=== PATIENT | male | born 1985 | race Caucasian/White ===

== ENCOUNTER 2019-09-11 16:54 | Emergency (ER) | payer OTHER ==
[2019-09-11] MEDS ORDERED: Albuterol/Ipratropium NEB.SOL* Albuterol 2.5 MG/Ipratropium 0.5 MG 3 ML INH ONE ×2 (17:13→17:51)
[2019-09-11] MEDS ORDERED: predniSONE TAB* 20 MG PO ONE (17:14)
--- NOTE | 2019-09-11 17:15 | UC ---
Respiratory Complaint HPI - HPI Summary HPI Summary: Patient is a 34yo male presenting with father for SOB and wheezing that has worsened over the past few days. 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 States he has "just been breathing it in." Patient also states he has been exposed to black mold at his home. Patient notes chest tightness. Denies fever and chills. Denies n/v/d. Denies dizziness. Denies history of asthma. - History of Current Complaint Stated Complaint: SOB Time Seen by Provider: 09/11/19 17:13 Hx Obtained From: Patient Onset/Duration: Gradual Onset, Lasting Days - Allergies/Home Medications Allergies/Adverse Reactions: Allergies Allergy/AdvReac Type Severity Reaction Status Date / Time No Known Allergies Allergy Verified 09/11/19 17:39 Home Medications: Home Medications Loratadine [Claritin] 10 mg PO DAILY 09/11/19 [History Confirmed 09/11/19] guaiFENesin [Mucinex] 600 mg PO BID 09/11/19 [History Confirmed 09/11/19] PMH/Surg Hx/FS Hx/Imm Hx Previously Healthy: Yes - Family History Known Family History: Positive: Non-Contributory Review of Systems All Other Systems Reviewed And Are Negative: Yes Constitutional: Positive: Negative. Negative: Fever, Chills Eyes: Positive: Negative. Negative: Blurred Vision, Diplopia, Drainage ENT: Positive: Negative. Negative: Sore Throat, Ear Ache, Nasal Discharge, Sinus Congestion, Sinus Pain/Tenderness Respiratory: Positive: Shortness Of Breath, Other - wheezing. Negative: Cough Cardiovascular: Positive: Negative. Negative: Palpitations, Chest Pain Gastrointestinal: Positive: Negative. Negative: Abdominal Pain, Vomiting, Diarrhea, Nausea Physical Exam Triage Information Reviewed: Yes Appearance: Well-Nourished, Other: - mild respiratory distress. Patient still able to speak in full sentences Vital Signs Reviewed: Yes Eyes: Positive: Conjunctiva Inflamed ENT: Positive: Hearing grossly normal, Pharynx normal, TMs normal, Uvula midline. Negative: Nasal congestion, Nasal drainage, Trismus, Muffled voice, Hoarse voice Neck exam: Normal Neck: Positive: Supple Respiratory: Positive: Respiratory distress, Wheezing - diffuse wheezing throughout all lung higgins. Negative: Crackles, Rhonchi, Stridor Cardiovascular: Positive: RRR, Tachycardia Neurological Exam: Normal Neurological: Positive: Alert, Muscle Tone Normal Psychological: Positive: Age Appropriate Behavior Respiratory Course/Dx - Course Course Of Treatment: Patient received two duoneb treatments and prednisone here. Prescribed prednisone and albuterol inhaler for home. Patient VS stable upon departure. No respiratory distress or increased effort noted after nebbing. Patient voiced significant improvement in breathing. Instructed patient to refrain from harvesting hemp for the rest of the week. Instructed to use mask while working. Directed him to follow up with [facility] or Dr. Alvarenga at the [facility] if needed. Patient voiced understanding and agreed to the treatment plan. The patient was also discussed with Dr. Begum who agreed to the treatment plan. - Differential Dx/Diagnosis Provider Diagnosis: Acute bronchospasm Discharge ED - Sign-Out/Discharge Documenting (check all that apply): Patient Departure All imaging exams completed and their final reports reviewed: No Studies - Discharge Plan Condition: Stable Disposition: HOME Prescriptions: predniSONE TAB* [Deltasone 20 MG TAB*] 40 mg PO DAILY #8 tab Patient Education Materials: Bronchospasm (ED) Forms: *Work Release Referrals: Jeancarlos Barbosa MD [Primary Care Provider] - If Needed Elias Alvarenga MD [Medical Doctor] - If Needed Additional Instructions: As discussed, take 1-2 breaths of the albuterol inhaler every 4-6 hours as needed for your shortness of breath. Take the prednisone as prescribed to relieve inflammation. It is important that you wear a protective mask while working. Follow up with the [facility] or the primary care physician referral listed below if symptoms continue. Return or go to the emergency room if you experience severe shortness of breath. - Billing Disposition and Condition Condition: STABLE Disposition: Home - Attestation Statements Provider Attestation: Per institutional requirements, I have reviewed the chart,. I did not personally evaluate, interact with , or disposition this patient.
[2019-09-11 17:39] VITALS: BP 137/82
[2019-09-11] MEDS ORDERED: Albuterol HFA INHALER* 8 gm MDI INH ONE (18:01)
== END 2019-09-11 18:26 | disposition home or self-care (01) ==
LOC: UCCORT 16:54
DX: J98.01 Acute bronchospasm (principal)
CPT/HCPCS: 99203; A9270-GY; G0463; J7512